=== PATIENT | male | born 1955 | race Caucasian/White ===

== ENCOUNTER 2019-08-25 14:23 | Inpatient (IN) | payer OTHER, MEDICAID ==
[~2019-08-25] VITALS: Ht 175.3 cm; Wt 88.0 kg
--- NOTE | 2019-08-25 14:26 | NUR ---
PT BIB CARE TO ER BED 4
[2019-08-25 14:33] VITALS: BP 123/59
--- NOTE | 2019-08-25 14:52 | NUR ---
64/M BIBA DUE TO HYPERGLYCEMIA >600 mg/dL AT THE CLINIC. PT HAS BEEN NON-CONPLANT OF HTN AND DM2 MEDS FOR 5 DAYS PER PARAMEDICS. PT IS A&OX4 BUT C/O DIZZY AND WEAKNESS. DENIES NAUSEA, VOMITING, SOB, CP, OR ANY PAIN. PT SPEAKING ON PHONE, NO SIGNS OF DISTRESS AT THIS TIME. PMH: HTN, DM2 MEDS: SEE LIST
[2019-08-25] MEDS ORDERED: NACL 0.9% 2,000 ML IV ONE (15:00)
--- NOTE | 2019-08-25 15:32 | NUR ---
PHLEB AT BEDSIDE
[2019-08-25 15:44] LABS: BASOPHILS # (AUTO) 0.1 K/uL (0.00-0.22); BASOPHILS % (AUTO) 0.6 % (0.0-2.0); EOSINOPHILS # (AUTO) 0.1 K/uL (0-0.4); EOSINOPHILS % (AUTO) 0.4 % (0.0-4.0); HEMOGLOBIN 10.8 g/dL (12.0-18.0); LYMPHOCYTES # (AUTO) 1.6 K/uL (2.0-11.5); LYMPHOCYTES % (AUTO) 13.5 % (20.5-51.1); MEAN CORPUSCULAR HEMOGLOBIN 25 pg (27-31); MEAN CORPUSCULAR HGB CONC 31 g/dL (33-37); MONOCYTES # (AUTO) 1.3 K/uL (0.8-1.0); MONOCYTES % (AUTO) 10.4 % (1.7-9.3); NEUTROPHILS # (AUTO) 9.1 K/uL (1.8-7.7); NEUTROPHILS % (AUTO) 75.1 % (42.2-75.2); PLATELET COUNT (AUTO) 342 K/uL (140-450); RED BLOOD CELL COUNT(AUTO) 4.37 MIL/uL (4.20-6.10); WHITE BLOOD COUNT (AUTO) 12.1 K/uL (4.8-10.8)
[2019-08-25 16:15] LABS: ANION GAP 9.8 (8-16); CREATININE 1.5 mg/dL (0.7-1.3); POTASSIUM 4.8 mmol/L (3.5-5.1)
--- NOTE | 2019-08-25 16:23 | NUR ---
PT STATES WANTING TO EAT. DR. BANG NOTIFIED. ORDERED DIABETIC DIET FOR PT.
[2019-08-25 16:26] LABS: ALBUMIN 2.3 g/dL (3.4-5.0); TOTAL BILIRUBIN 0.4 mg/dL (0.0-1.0)
[2019-08-25] MEDS ORDERED: INSULIN REGULAR, HUMAN 100 UNIT/ML VIAL SUBQ ONE (17:05)
--- NOTE | 2019-08-25 17:19 | NUR ---
PT IS RESTING IN THE BED WITH EYES OPENED. PT IS ON THE MONITOR AND WILL CONTINUE TO MONITORING PT'S VITAL SIGNS. VSS.
--- NOTE | 2019-08-25 18:20 | NUR ---
PT URINATED AT BEDSIDE W/ URINAL. PT IS ON THE MONITOR WITH VITAL SIGNS STABLE.
--- NOTE | 2019-08-25 18:42 | NUR ---
CONFIRMED WITH ADMITTING PT WILL BE ADMITTED TO [facility].
[2019-08-25] MEDS ORDERED: ONDANSETRON 4 MG/2 ML VIAL IVP PRN (18:55)
[2019-08-25] MEDS ORDERED: HYDROcodone/APAP 7.5/325 MG 1 TAB PO PRN (18:55)
[2019-08-25] MEDS ORDERED: ACETAMINOPHEN 325 MG TAB PO PRN (18:55)
--- NOTE | 2019-08-25 19:15 | NUR ---
RECEIVED REPORT FROM VERA VENTURA.
--- NOTE | 2019-08-25 19:15 | NUR ---
Pt report given to VERA Mclaughlin. Transfer of care at this time.
[2019-08-25] MEDS ORDERED: LOTC TP (19:33)
[2019-08-25] MEDS ORDERED: [UNRECOGNIZED DRUG - CODE] PO (19:33)
[2019-08-25] MEDS ORDERED: INSU100S22 SC (19:33)
[2019-08-25] MEDS ORDERED: LISI10TA11 PO (19:33)
[2019-08-25] MEDS ORDERED: METF1000 PO (19:33)
[2019-08-25] MEDS ORDERED: OMEP20TC12 PO (19:33)
[2019-08-25] MEDS ORDERED: SPIMDI INH (19:33)
[2019-08-25] MEDS ORDERED: FLUT1POW3 IH (19:33)
[2019-08-25] MEDS ORDERED: SILD50TA PO (19:33)
[2019-08-25] MEDS ORDERED: HUM7525 SUBQ (19:33)
--- NOTE | 2019-08-25 19:50 | NUR ---
\Admited to TELE. Will go to room 122 B. Belongings list completed. Report to VERA ESQUEDA .
[2019-08-25 19:55] LABS: PROTHROMBIN TIME 9.9 secs (10.8-13.4)
[2019-08-25 20:00] VITALS: BP 156/72
--- NOTE | 2019-08-25 20:00 | NUR ---
PT ARRIVED VIA GURNEY FROM ER, REPORT GIVEN BY WILLIE RN DAYSHIFT NURSE AT BEDSIDE FOR CONTINUITY OF CARE, PT AMBULATE INDEPENDENTLY TO B BED OF ROOM 122. PT DECLINES A GOWN AT THIS TIME. HE IS AOX4, HUNGARIAN SPEAKING WITH SKIN INTACT. V/S FOLLOWS: T 100.2 P 79 R 18 B/P 156/72 02 91% ON ROOM AIR. PT ORIENTED TO ROOM, BED AND REMOTE. ALL REQUESTED NEEDS ATTENDED AND CALL WILKERSON IN REACH.
[2019-08-25 20:01] LABS: BARBITURATE, URINE NEG. ng/ml (NEG <=200); BENZODIAZEPINE, URINE NEG. ng/mL (NEG <=200); CANNABINOID, URINE NEG. ng/mL (NEG <=50); COCAINE, URINE NEG. ng/mL (NEG <=300); OPIATE, URINE NEG. ng/mL (NEG <=2000); PHENCYCLIDINE SCREEN,URINE NEG. ng/mL (NEG <=25)
[2019-08-25 20:04] LABS: APPEARANCE,URINE CLEAR (CLEAR); BILIRUBIN,URINE NEGATIVE (NEGATIVE); BLOOD, URINE TRACE-L (NEGATIVE); COLOR,URINE YELLOW (YELLOW); LEUKOCYTE ESTERASE ,URINE NEGATIVE (NEGATIVE); NITRITE, URINE NEGATIVE (NEGATIVE); UGLUCOSE 3+ (NEGATIVE)
[2019-08-25] MEDS ORDERED: DEXTROSE 50% 50 ML SYR IVP PRN (20:10)
[2019-08-25] MEDS: BLOOD GLUCOSE MONITORING 1 DEV DEV FS SCH (20:37)
[2019-08-25] MEDS: INSULIN LISPRO SLIDING SCALE 100 UNITS/ML VIAL SUBQ PRN (20:45)
--- NOTE | 2019-08-25 20:45 | NUR ---
PT V/S FOLLOWS: T 100.2 P 79 R18 B/P 156/72 02 91% ON ROOM AIR. PT FINGERSTICK IS 355, HE WAS GIVEN 10 UNITS OF HUMALOG WELL A SMALL SNACK
[2019-08-25] MEDS: DOCUSATE SODIUM 100 MG GELCAP PO SCH (20:51)
[2019-08-25 20:56] LABS: MAGNESIUM 2.3 mg/dL (1.8-2.4); PHOSPHORUS 3.4 mg/dL (2.5-4.9); THYROID STIMULATING HORMONE 0.95 uIU/mL (0.34-3.74)
--- NOTE | 2019-08-25 21:20 | NUR ---
MRSA SWAB DONE, ADMISSION QUESTIONS ASKED VIA [employer] INSPECTOR REPAIRER PHONES WITH CRISTINA SLACKMAN # [id number]. PT GIVEN OPPORTUNITY TO ASKED QUESTIONS, PT VERBALIZED UNDERSTANDING OF MEDICATIONS AND DM TEACHING AT BEDSIDE. PT GIVEN ORDERED MEDS AND PT HAS NS RUNNING ORDERED. PT GIVEN TYLENOL FOR MILD GENERALIZED DISCOMFORT FROM INCREASED TEMP. WILL CONTINUE TO MONITOR V/S.
[2019-08-25] MEDS: NACL 0.9% 1,000 ML IV SCH (21:47)
[2019-08-26] VITALS: BP 107/74
--- NOTE | 2019-08-26 | NUR ---
TEMP RETAKEN IS 98.1 PT SLEEPING NO S/S OF PAIN OR DISTRESS NOTED.
[2019-08-26 04:00] VITALS: BP 125/54
--- NOTE | 2019-08-26 04:00 | NUR ---
PT SLEEPING IN STABLE CONDITION.
[2019-08-26] MEDS: NACL 0.9% 1,000 ML IV SCH ×3 (05:38→18:54)
--- NOTE | 2019-08-26 06:00 | NUR ---
PT AM FINGERSTICK IS 307 GIVEN 8 UNITS OF HUMALOG PER PROTOCOL, IV FLUID BAG REPLACE.
[2019-08-26] MEDS: INSULIN LISPRO SLIDING SCALE 100 UNITS/ML VIAL SUBQ PRN ×3 (06:35→20:27)
[2019-08-26] MEDS: PANTOPRAZOLE 40 MG TABEC PO SCH (06:39)
[2019-08-26] MEDS: BLOOD GLUCOSE MONITORING 1 DEV DEV FS SCH ×4 (06:39→20:25)
--- NOTE | 2019-08-26 07:23 | NUR ---
RECEIVED REPORT FROM TAPE COATER NURSE. PATIENT LYING DOWN IN BED SLEEPING, AROUSABLE BY VOICE. NO DISTRESS NOTED. DENIES ANY PAIN. AAOX4, CALM, COOPERATIVE, SKIN COLOR APPROPRIATE TO ETHNICITY, WARM TO TOUCH. SKIN INTACT. IV SITE INTACT, PATENT, AND INFUSING IVF PER MD ORDERS. RESPIRATIONS EVEN, UNLABORED, ON ROOM AIR. REVIEWED PLAN OF CARE WITH PATIENT. PATIENT VERBALIZED UNDERSTANDING. SAFETY MEASURES IN PLACE, CALL LIGHT WITHIN REACH. WILL CONTINUE TO MONITOR.
[2019-08-26 07:57] LABS: ANION GAP 11.9 (8-16); CARBON DIOXIDE 26.4 mmol/L (21-32); CREATININE 1.1 mg/dL (0.7-1.3); POTASSIUM 4.3 mmol/L (3.5-5.1)
[2019-08-26 08:00] VITALS: BP 140/69
[2019-08-26 08:02] LABS: MAGNESIUM 1.9 mg/dL (1.8-2.4); PHOSPHORUS 2.8 mg/dL (2.5-4.9)
[2019-08-26 08:06] LABS: BASOPHILS # (AUTO) 0.1 K/uL (0.00-0.22); BASOPHILS % (AUTO) 0.5 % (0.0-2.0); EOSINOPHILS # (AUTO) 0.1 K/uL (0-0.4); EOSINOPHILS % (AUTO) 0.8 % (0.0-4.0); HEMATOCRIT 36.8 % (36-52); HEMOGLOBIN 11.6 g/dL (12.0-18.0); LYMPHOCYTES # (AUTO) 1.8 K/uL (2.0-11.5); LYMPHOCYTES % (AUTO) 14.2 % (20.5-51.1); MEAN CORPUSCULAR HEMOGLOBIN 25 pg (27-31); MEAN CORPUSCULAR HGB CONC 32 g/dL (33-37); MEAN CORPUSCULAR VOLUME 79.5 fL (80-94); MONOCYTES # (AUTO) 1.1 K/uL (0.8-1.0); NEUTROPHILS # (AUTO) 9.4 K/uL (1.8-7.7); NEUTROPHILS % (AUTO) 75.5 % (42.2-75.2); PLATELET COUNT (AUTO) 364 K/uL (140-450); RED BLOOD CELL COUNT(AUTO) 4.63 MIL/uL (4.20-6.10); RED CELL DISTRIBUTION WIDTH 14.9 % (11.6-13.7); WHITE BLOOD COUNT (AUTO) 12.5 K/uL (4.8-10.8)
[2019-08-26] MEDS ORDERED: ALBUTEROL SULFATE/IPRATROPIU 3 ML SOL IH PRN (08:50)
[2019-08-26] MEDS: FAMOTIDINE 20 MG TAB PO SCH (09:00)
[2019-08-26] MEDS: DOCUSATE SODIUM 100 MG GELCAP PO SCH ×2 (09:00→20:59)
[2019-08-26] MEDS: LISINOPRIL 10 MG TAB PO SCH (09:01)
[2019-08-26] MEDS: metFORMIN 500 MG TAB PO SCH ×2 (09:01→21:00)
[2019-08-26] MEDS: INSULIN LANTUS 100 UNITS/ML 10 ML VIAL SUBQ SCH (09:08)
--- NOTE | 2019-08-26 09:14 | NUR ---
PATIENT IS SCREENED AND CATEGORIZED HIGH NUTRITION RISK. PATIENT WILL BE SEEN WITHIN 1-2 DAY OF ADMISSION. 08/26/2019-08/27/[address]
[2019-08-26 12:00] VITALS: BP 120/59
[2019-08-26 12:33] LABS: CHOL/HDL RATIO 4.2 (1-4.5)
--- NOTE | 2019-08-26 12:48 | NUR ---
PATIENT SITTING DOWN IN BED WITH LUNCH TRAY IN FRONT. NO DISTRESS NOTED. CONDITION UNCHANGED. 12 UNITS HUMALOG VIA SUBQ GIVEN AT THIS TIME PER DR. QURESHI ORDERS FOR 409 GLUCOSE.
[2019-08-26 16:00] VITALS: BP 123/59
[2019-08-26] MEDS: INSULIN REGULAR, HUMAN 100 UNIT/ML VIAL SUBQ SCH (16:33)
--- NOTE | 2019-08-26 16:37 | NUR ---
PATIENT LYING DOWN IN BED SLEEPING, AROUSABLE BY VOICE. CONDITION UNCHANGED. SCHEDULED MEDICATIONS DUE GIVEN. WILL CONTINUE TO MONITOR.
--- NOTE | 2019-08-26 19:25 | NUR ---
GAVE REPORT TO BUSINESS TEST ANALYST NURSE FOR CONTINUITY OF CARE. PATIENT IN STABLE CONDITION.
--- NOTE | 2019-08-26 19:27 | NUR ---
RECEIVED REPORT FROM AM SHIFT NURSE, GERARD. AAOX4, AMBULATORY, PATIENT IN BED SLEEPING,EASILY AROUSED BY VERBAL STIMULI. EVEN, UNLABORED, ON ROOM AIR. NO DISTRESS NOTED. DENIES ANY PAIN. WITH IV ON THE L AC G 20, NS AT 125M/HR INTACT, PATENT. BED PLACED IN LOW POSITION. CALL LIGHT WITHIN REACH. WILL CONTINUE TO MONITOR.
[2019-08-26 19:55] VITALS: BP 108/54
--- NOTE | 2019-08-26 20:27 | NUR ---
PT GILDARDO BLOOD SUGAR 217= 4 UNITS HUMALOG GIVEN
--- NOTE | 2019-08-26 20:34 | NUR ---
RECEIVED PT ON ROOM AIR WITH AN SP02 OF 94% AND CLEAR BREATH SOUNDS. NO RESPIRATORY DISTRESS NOTED AT THIS TIME; HR 79 AND RR 16. HHN PRN TX NOT GIVEN. WILL CONTINUE TO MONITOR PT.
--- NOTE | 2019-08-26 22:40 | NUR ---
PT WENT TO THE BATHROOM, STEADY GAIT, NO COMPLAINTS AT THIS TIME. WILL CONTINUE TO MONITOR
[2019-08-27] VITALS: BP 112/74
[2019-08-27] MEDS: NACL 0.9% 1,000 ML IV SCH ×2 (00:28→16:43)
--- NOTE | 2019-08-27 00:41 | NUR ---
PT SLEEPING, NO COMPLAINTS AT THIS TIME. WILL CONTINUE TO MONITOR
[2019-08-27 04:00] VITALS: BP 128/52
[2019-08-27] MEDS: BLOOD GLUCOSE MONITORING 1 DEV DEV FS SCH ×4 (05:03→21:00)
[2019-08-27] MEDS: INSULIN REGULAR, HUMAN 100 UNIT/ML VIAL SUBQ SCH ×3 (05:40→16:39)
--- NOTE | 2019-08-27 05:42 | NUR ---
DID NOT GIVE THE HUMALOG SLIDING SILVINO, BECAUSE I HAVE GIVEN THE HUMULIN R, HOLD THE HUMALOG SLIDING SCALE IT PER
[2019-08-27 05:48] LABS: BASOPHILS # (AUTO) 0.1 K/uL (0.00-0.22); BASOPHILS % (AUTO) 0.6 % (0.0-2.0); EOSINOPHILS # (AUTO) 0.1 K/uL (0-0.4); HEMATOCRIT 32.4 % (36-52); HEMOGLOBIN 10.2 g/dL (12.0-18.0); LYMPHOCYTES % (AUTO) 14.8 % (20.5-51.1); MEAN CORPUSCULAR HEMOGLOBIN 25 pg (27-31); MEAN CORPUSCULAR HGB CONC 32 g/dL (33-37); MEAN CORPUSCULAR VOLUME 79.1 fL (80-94); MONOCYTES # (AUTO) 1.3 K/uL (0.8-1.0); MONOCYTES % (AUTO) 9.9 % (1.7-9.3); NEUTROPHILS % (AUTO) 73.7 % (42.2-75.2); PLATELET COUNT (AUTO) 334 K/uL (140-450); RED CELL DISTRIBUTION WIDTH 14.9 % (11.6-13.7); WHITE BLOOD COUNT (AUTO) 13.6 K/uL (4.8-10.8)
[2019-08-27 06:05] LABS: ANION GAP 8.2 (8-16); CARBON DIOXIDE 26.4 mmol/L (21-32); POTASSIUM 3.6 mmol/L (3.5-5.1)
[2019-08-27] MEDS: PANTOPRAZOLE 40 MG TABEC PO SCH (06:12)
--- NOTE | 2019-08-27 06:49 | NUR ---
PT AWAKE ALERT ORIENTED X 4, AMBULATORY PT IN STABLE CONDITION AT THIS TIME. WILL ENDORSE TO NEXT SHIFT
--- NOTE | 2019-08-27 07:23 | NUR ---
RECEIVED REPORT FROM SPLICING TECHNICIAN NURSE. PATIENT LYING DOWN IN BED SLEEPING, AROUSABLE BY VOICE. NO DISTRESS NOTED. DENIES ANY PAIN. AAOX4, CALM, COOPERATIVE, SKIN COLOR APPROPRIATE TO ETHNICITY, WARM TO TOUCH. SKIN INTACT. IV SITE INTACT, PATENT, AND INFUSING IVF PER MD ORDERS. RESPIRATIONS EVEN, UNLABORED, ON ROOM AIR. REVIEWED PLAN OF CARE WITH PATIENT. PATIENT VERBALIZED UNDERSTANDING. SAFETY MEASURES IN PLACE, CALL LIGHT WITHIN REACH. WILL CONTINUE TO MONITOR.
[2019-08-27 08:00] VITALS: BP 144/73
[2019-08-27] MEDS: LISINOPRIL 10 MG TAB PO SCH (09:08)
[2019-08-27] MEDS: DOCUSATE SODIUM 100 MG GELCAP PO SCH ×2 (09:08→22:09)
[2019-08-27] MEDS: metFORMIN 500 MG TAB PO SCH (09:08)
[2019-08-27] MEDS: FAMOTIDINE 20 MG TAB PO SCH (09:09)
[2019-08-27] MEDS: INSULIN LANTUS 100 UNITS/ML 10 ML VIAL SUBQ SCH (09:13)
--- NOTE | 2019-08-27 09:15 | NUR ---
PATIENT LYING DOWN IN BED, SLEEPING, AROUSABLE BY VOICE. NO DISTRESS NOTED. DENIES ANY PAIN. SCHEDULED MEDICATIONS DUE GIVEN. WILL CONTINUE TO MONITOR.
--- NOTE | 2019-08-27 10:09 | NUR ---
(08/27/19) RD INITIAL ASSESSMENT COMPLETED PLEASE REFER TO NUTRITION ASSESSMENT UNDER CARE ACTIVITY FOR ESTIMATED NUTRITIONAL NEEDS. RD RECOMMENDATIONS: 1. CONTINUE ON CCHO 60 GM DIET TOLERATED. 2. CONSULT RDN PRN. 3. RD WILL F/U 3-5 DAYS; MODERATE RISK. 4. RDN PROVIDED DM DIET EDUCATION TO PATIENT (HANDOUT); PT DECLINED FURTHER VERBAL DISCUSSION. PT MAY NEED DIET EDUCATION REINFORCEMENT. LAW BACA, , RDN
--- NOTE | 2019-08-27 12:41 | NUR ---
PATIENT SITTING DOWN IN BED. NO DISTRESS NOTED. SCHEDULED MEDICATIONS DUE GIVEN. WILL CONTINUE TO MONITOR.
[2019-08-27] MEDS: PIPERACILLIN/TAZOBACTAM 3.375 GM in DEXTROSE 5% 50 ML IV SCH ×2 (13:02→17:56)
--- NOTE | 2019-08-27 13:04 | NUR ---
PATIENT SITTING DOWN IN BED. NO DISTRESS NOTED. SCHEDULED MEDICATIONS DUE GIVEN. WILL CONTINUE TO MONITOR.
[2019-08-27] MEDS ORDERED: MAGNESIUM OXIDE 400 MG TAB PO SCH (15:18)
[2019-08-27 16:00] VITALS: BP 145/80
--- NOTE | 2019-08-27 16:23 | NUR ---
DISCHARGE PLANNIN64 Y/O MALE PATIENT FROM HOME, WHO CAME IN DUE TO HIGH BLOOD SUGAR. PAST MEDICAL HISTORY INCLUDE DM II, NEUROPATHY, COPD. INITIAL DIAGNOSIS OFD/O OF ANS. CURRENT LABS INCLUDE WBC 13.6, H/H 10.2/32.4, NA/K 134/3.6. CXR ON ADMISSION SHOWED PROMINENT 6.9 CM DENSITY WITHIN THE MEDIAL RIGHT UPPER LUNG WHICH MAY REPRESENT PULMONARY MASS, MEDIASTINAL MASS AND OR CONSOLIDATION. ON ZOSYN. [facility] CONSULT IN PLACE. DC PLAN TO HOME ONCE STABLE. Addendum: 08/28/19 at 1435 by Fariba York CM DC PLANNING SEEN BY PULMO DR HAWKINS REVIEWED CT OF THE CHEST RESULT SHOWING THE RT SIDE LUNG MASS CONCERNING FOR MALIGNANCY, RECOMMENDED OUT PT PET CT SCAN AND OTHER MALIGNANCY .CONTINUE PRN BRONCHODILATORS. ORDERED CT GUIDED BIOPSY. DC PLAN TO GO HOME WHEN STABLE CM TO FOLLOW.
--- NOTE | 2019-08-27 19:18 | NUR ---
RECEIVED BEDSIDE REPORT FROM AM SHIFT NURSE. PATIENT IS RIGHT SIDE LYING ON BED, WITH EYES CLOSED. NO SOB OR DISTRESS NOTED.IV ACCESS ON LEFT FOREARM 20 GAUGE, PATENT, INTACT AND INFUSING WELL. PATIENT IS AMBULATORY. SKIN IS INTACT. BED IN LOW, SAFETY MEASURES IN PLACE.CALL LIGHT WITHIN PATIENT REACH. WILL CONTINUE TO MONITOR PATIENT.
--- NOTE | 2019-08-27 19:19 | NUR ---
GAVE REPORT TO STUDENT SERVICES VICE PRESIDENT NURSE FOR CONTINUITY OF CARE. PATIENT IN STABLE CONDITION.
[2019-08-27] MEDS: ALBUTEROL SULFATE/IPRATROPIU 3 ML SOL IH SCH (21:00)
--- NOTE | 2019-08-27 21:10 | NUR ---
ROUNDS DONE. VISIBLE CHEST RISE AND FALL NOTED. CALL LIGHT WITHIN PATIENT REACH. WILL CONTINUE TO MONITOR PATIENT.
--- NOTE | 2019-08-27 22:00 | NUR ---
BLOOD GLUCOSE RESULT OF 146. NO INSULIN COVERAGE NEEDED.
[2019-08-28] MEDS: PIPERACILLIN/TAZOBACTAM 3.375 GM in DEXTROSE 5% 50 ML IV SCH ×4 (00:05→17:07)
[2019-08-28] MEDS: NACL 0.9% 1,000 ML IV SCH (00:06)
[2019-08-28 00:10] VITALS: BP 146/60
--- NOTE | 2019-08-28 00:15 | NUR ---
VITALS DONE. NO DISTRESS NOTED. CALL LIGHT WITHIN PATIENT REACH. WILL CONTINUE TO MONITOR PATIENT.
--- NOTE | 2019-08-28 04:01 | NUR ---
ROUNDS DONE. VISIBLE CHEST RISE AND FALL NOTED. CALL LIGHT WITHIN PATIENT REACH. WILL CONTINUE TO MONITOR PATIENT.
[2019-08-28] MEDS: PANTOPRAZOLE 40 MG TABEC PO SCH (05:35)
[2019-08-28 06:01] LABS: BASOPHILS # (AUTO) 0.1 K/uL (0.00-0.22); BASOPHILS % (AUTO) 0.5 % (0.0-2.0); EOSINOPHILS # (AUTO) 0.1 K/uL (0-0.4); EOSINOPHILS % (AUTO) 0.8 % (0.0-4.0); HEMATOCRIT 34.1 % (36-52); HEMOGLOBIN 10.7 g/dL (12.0-18.0); LYMPHOCYTES # (AUTO) 1.9 K/uL (2.0-11.5); LYMPHOCYTES % (AUTO) 14.7 % (20.5-51.1); MEAN CORPUSCULAR HEMOGLOBIN 25 pg (27-31); MEAN CORPUSCULAR HGB CONC 31 g/dL (33-37); MEAN CORPUSCULAR VOLUME 78.3 fL (80-94); MONOCYTES # (AUTO) 1.3 K/uL (0.8-1.0); MONOCYTES % (AUTO) 10.7 % (1.7-9.3); NEUTROPHILS # (AUTO) 9.3 K/uL (1.8-7.7); NEUTROPHILS % (AUTO) 73.3 % (42.2-75.2); PLATELET COUNT (AUTO) 332 K/uL (140-450); RED BLOOD CELL COUNT(AUTO) 4.35 MIL/uL (4.20-6.10); RED CELL DISTRIBUTION WIDTH 15.1 % (11.6-13.7); WHITE BLOOD COUNT (AUTO) 12.7 K/uL (4.8-10.8)
--- NOTE | 2019-08-28 06:36 | NUR ---
PATIENT IN STABLE CONDITION. CALL LIGHT WITHIN PATIENT REACH. WILL ENDORSE TO AM SHIFT NURSE FOR CONTINUITY OF CARE.
[2019-08-28 06:39] LABS: ANION GAP 7.1 (8-16); CARBON DIOXIDE 29.5 mmol/L (21-32); CREATININE 1.2 mg/dL (0.7-1.3); POTASSIUM 3.6 mmol/L (3.5-5.1)
[2019-08-28] MEDS: BLOOD GLUCOSE MONITORING 1 DEV DEV FS SCH ×4 (06:54→21:27)
[2019-08-28] MEDS: INSULIN REGULAR, HUMAN 100 UNIT/ML VIAL SUBQ SCH ×3 (06:55→17:01)
[2019-08-28] MEDS: INSULIN LISPRO SLIDING SCALE 100 UNITS/ML VIAL SUBQ PRN ×4 (06:56→21:35)
--- NOTE | 2019-08-28 06:57 | NUR ---
PATIENT HAD A BLOOD GLUCOSE OF 196 WITH 2 UNITS OF REGULAR INSULIN COVERAGE GIVEN.
--- NOTE | 2019-08-28 07:20 | NUR ---
RECEIVED BEDSIDE REPORT FROM DISTRICT CUSTOMS DIRECTOR NURSE. PT IS ASLEEP, NO S/S OF DISTRESS OR SOB. PT ON ROOM AIR, SKIN INTACT. IV SITE L FA 20 G, INFUSING NS 50 ML/HR. FALL PRECAUTIONS IN PLACE. CALL LIGHT IS WITHIN REACH. WILL CONTINUE TO MONITOR.
[2019-08-28 08:00] VITALS: BP 146/72
[2019-08-28] MEDS: INSULIN LANTUS 100 UNITS/ML 10 ML VIAL SUBQ SCH (09:20)
[2019-08-28] MEDS: LACTOBACILLUS RHAMNOSUS GG 1 EACH CAP PO SCH (09:23)
[2019-08-28] MEDS: FAMOTIDINE 20 MG TAB PO SCH (09:23)
[2019-08-28] MEDS: LISINOPRIL 10 MG TAB PO SCH (09:23)
[2019-08-28] MEDS: DOCUSATE SODIUM 100 MG GELCAP PO SCH ×2 (09:23→21:33)
[2019-08-28] MEDS: ALBUTEROL SULFATE/IPRATROPIU 3 ML SOL IH SCH ×2 (10:02→21:14)
--- NOTE | 2019-08-28 11:41 | NUR ---
BG 282 AT THIS TIME. SCHEDULED 7 UNITS OF HUMULIN R ADMINISTERED, WELL 6 UNITS OF SLIDING SCALE HUMALOG. PT IS AWAKE AND ALERT IN BED, TALKING ON THE PHONE.
--- NOTE | 2019-08-28 14:21 | NUR ---
*S.T. BEDSIDE SWALLOW EVAL COMPLETED* See report. Pt presents with adequate oropharyngeal swallow function w/o overt s/s aspiration across all textures. Pt is able to self-feed w/o difficulty. Recommend: 1) Continue regular texture diet, thin liquids okay. 2) P.O. meds okay whole, one at a time. No further tx indicated at this time as pt does not present w/ clinical dysphagia. [place] [facility] [place] [facility] [place] [id number]
--- NOTE | 2019-08-28 15:35 | NUR ---
PT SLEEPING COMFORTABLY, NO S/S OF DISTRESS NO SOB. NO C/O PAIN. CONTINUING TO MONITOR.
[2019-08-28 16:00] VITALS: BP 150/67
--- NOTE | 2019-08-28 18:18 | NUR ---
PT UP BRUSHING HIS TEETH AFTER EATING DINNER.
--- NOTE | 2019-08-28 18:50 | NUR ---
PT IV ACCIDENTALLY PULLED OUT. PT IS EATING DINNER AT THIS TIME AND WANTS TO HAVE IV INSERTED AFTER HE IS FINISHED EATING. WILL ENDORSE TO CITY SOLICITOR NURSE.
--- NOTE | 2019-08-28 19:15 | NUR ---
ENDORSED PT TO FILE KEEPER NURSE IN STABLE CONDITION.
--- NOTE | 2019-08-28 19:30 | NUR ---
RECEIVED PT FROM DION GAMEZ PT CONGOLESE SPEAKER AAOX4 AMBULATORY NOT RESP DISTRESS NOTED IV IS INSERTED ON LEDT HAND GAUGE # 22 INITIAL ASSESSMENT DONE
--- NOTE | 2019-08-28 21:27 | NUR ---
RECEIVED PATIENT ON ROOM AIR PULSE OX SAT 94%. SCHEDULED BREATHING TREATMENT ADMINISTERED. TOLERATED TX WELL WITHOUT ADVERSE SIDE EFFECTS. NO ACUTE RESPIRATORY DISTRESS NOTED AT THIS TIME. WILL CONTINUE TO MONITOR.
--- NOTE | 2019-08-28 22:20 | NUR ---
PT IS TRANSFER TO ROOM 106 B ON STABLE CONDITION,
[2019-08-29] VITALS: BP 147/65
[2019-08-29] MEDS: PIPERACILLIN/TAZOBACTAM 3.375 GM in DEXTROSE 5% 50 ML IV SCH ×4 (00:19→18:26)
[2019-08-29] MEDS: NACL 0.9% 1,000 ML IV SCH (01:30)
--- NOTE | 2019-08-29 02:00 | NUR ---
;PT SLEEPING WELL NOT DISTRESS NOTED IV ON LEFT HAND INFUSING WELL
--- NOTE | 2019-08-29 05:06 | NUR ---
SPONGE BATH GIVEN LINEN CHANGED REPOSITIONED , PT HAS BEEN VOIDING WELL
[2019-08-29] MEDS: BLOOD GLUCOSE MONITORING 1 DEV DEV FS SCH ×4 (05:48→21:46)
[2019-08-29] MEDS: PANTOPRAZOLE 40 MG TABEC PO SCH (05:58)
[2019-08-29] MEDS: ALBUTEROL SULFATE/IPRATROPIU 3 ML SOL IH SCH ×2 (06:40→19:45)
[2019-08-29] MEDS: INSULIN LISPRO SLIDING SCALE 100 UNITS/ML VIAL SUBQ PRN ×4 (06:45→21:47)
[2019-08-29] MEDS: INSULIN REGULAR, HUMAN 100 UNIT/ML VIAL SUBQ SCH ×3 (06:46→17:03)
--- NOTE | 2019-08-29 06:57 | NUR ---
PT WILL BE NPO POST BREAKFAST FOR CT ABD/PELVIS WITH AND WITHOUT CONTRAST, CONSENT ALREADY SIGNED
--- NOTE | 2019-08-29 07:05 | NUR ---
RECEIVED BEDSIDE REPORT FROM NIGHT NURSE. PATIENT IS AAOX4. NO S/S OF DISTRESS NOTED. PLANS OF CARE DISCUSSED. BED IN LOW POSITION. CALL LIGHT WITHIN REACH.
[2019-08-29 08:00] VITALS: BP 159/75
[2019-08-29 08:51] LABS: MAGNESIUM 1.7 mg/dL (1.8-2.4)
[2019-08-29] MEDS: LACTOBACILLUS RHAMNOSUS GG 1 EACH CAP PO SCH (08:57)
[2019-08-29] MEDS: FAMOTIDINE 20 MG TAB PO SCH (08:58)
[2019-08-29] MEDS: LISINOPRIL 10 MG TAB PO SCH (08:58)
[2019-08-29] MEDS: DOCUSATE SODIUM 100 MG GELCAP PO SCH ×2 (08:58→21:32)
[2019-08-29 09:00] LABS: ANION GAP 11.4 (8-16); CARBON DIOXIDE 27.4 mmol/L (21-32); CREATININE 1.3 mg/dL (0.7-1.3); POTASSIUM 3.8 mmol/L (3.5-5.1)
--- NOTE | 2019-08-29 09:00 | NUR ---
PATIENT AAOX4. PT NPO FOR CT SCAN WITH OR WITHOUT CONTRAST SCHEDULED. NO S/S OF DISTRESS NOTED.
[2019-08-29 09:01] LABS: BASOPHILS # (AUTO) 0.1 K/uL (0.00-0.22); BASOPHILS % (AUTO) 0.5 % (0.0-2.0); EOSINOPHILS # (AUTO) 0.1 K/uL (0-0.4); EOSINOPHILS % (AUTO) 0.6 % (0.0-4.0); HEMOGLOBIN 10.6 g/dL (12.0-18.0); LYMPHOCYTES # (AUTO) 2.3 K/uL (2.0-11.5); LYMPHOCYTES % (AUTO) 17.4 % (20.5-51.1); MEAN CORPUSCULAR HEMOGLOBIN 25 pg (27-31); MEAN CORPUSCULAR HGB CONC 31 g/dL (33-37); MEAN CORPUSCULAR VOLUME 79.2 fL (80-94); MONOCYTES % (AUTO) 7.7 % (1.7-9.3); NEUTROPHILS # (AUTO) 9.9 K/uL (1.8-7.7); NEUTROPHILS % (AUTO) 73.8 % (42.2-75.2); PLATELET COUNT (AUTO) 340 K/uL (140-450); RED CELL DISTRIBUTION WIDTH 14.9 % (11.6-13.7); WHITE BLOOD COUNT (AUTO) 13.4 K/uL (4.8-10.8)
[2019-08-29] MEDS: INSULIN LANTUS 100 UNITS/ML 10 ML VIAL SUBQ SCH (09:01)
--- NOTE | 2019-08-29 10:30 | NUR ---
PT IS OFF UNIT FOR CT SCAN.
--- NOTE | 2019-08-29 11:00 | NUR ---
PATIENT IS IN BED, AWAKE AND ALERT. IV INTACT AND PATENT TO LEFT WRIST. PATIENT AMBULATES TO THE BATHROOM WITH STEADY GAIT. CALL LIGHT WITHIN REACH. Addendum: 08/29/19 at 1139 by Madonna Lance RN PT RETURNED FROM CT SCAN.
--- NOTE | 2019-08-29 13:05 | NUR ---
PT AWAKE, ALERT, ORIENTED X4. PATIENT IS STILL EATING LUNCH. NO S/S OF DISTRESS NOTED. CALL LIGHT WITHIN REACH.
[2019-08-29 16:00] VITALS: BP 132/76
--- NOTE | 2019-08-29 16:00 | NUR ---
MADE ROUNDS, PATIENT AAOX4. NO S/S OF DISTRESS NOTED. PATIENT IN BED WATCHING TV, RESTING QUIETLY. CALL LIGHT WITHIN REACH.
--- NOTE | 2019-08-29 16:36 | NUR ---
REAL ESTATE SITE ANALYST assessment/discharge plan Name: Lin Abdullahi Relationship: sister Pre-Admission Living Arrangements: Lives with Other Other: Lin Horan Healthcare Decision Maker: Patient Advance Directive No Tentative Discharge Plan Summary: Patient is a 64 year old male with past medical history of diabetes and peripheral neuropathy. I met with patient at bedside. Patient alert and oriented x4. Patient speaks Mohawk. Patient lives at home with his sister Lin Horan and would like to return home upon discharge. Patient goes to [facility] (between [place], [place]) for medical care. He stated he has been waiting to receive his Medicare card via mail and has not, and this has made it difficult for him to obtain his medications from pharmacy. He stated he is planning to file a grievance against Social Security office. Bill Poster Installer and/or [employer] Consultant will follow up as needed. Signature: DEYA Ibarra Date: Aug 29, 2019
--- NOTE | 2019-08-29 18:58 | NUR ---
PATIENT IS STABLE. AAOX4. WILL ENDORSE TO NIGHT NURSE FOR CONTINUITY OF CARE.
--- NOTE | 2019-08-29 19:00 | NUR ---
RECEIVED PT FROM DAY SHIFT NURSE PT IS AAOX4 AMBULATORY IV ON LEFT HAND INFUSIGN WELL AND HL ON RT AC PATENTN NOT DISTRESS NOTED INITIAL ASSESSMENT DONE
--- NOTE | 2019-08-29 21:30 | NUR ---
BLOOD SUGAR TEST 249 COVERAGE WITH 4 UNITS SUB Q HUMALOG FOLLOW PROTOCOL AND HS SNACK IS GIVEN
--- NOTE | 2019-08-29 23:22 | NUR ---
PT SLEEPING WELL NOT DISTRESS ;NOTED REPOSITIONED HIMSELF IV ON LEFT HAND INFUSING WELL
[2019-08-29] MEDS ORDERED: MAGNESIUM OXIDE 400 MG TAB PO SCH (23:25)
[2019-08-30] VITALS: BP 148/67
[2019-08-30] MEDS: PIPERACILLIN/TAZOBACTAM 3.375 GM in DEXTROSE 5% 50 ML IV SCH ×3 (00:18→12:07)
--- NOTE | 2019-08-30 04:00 | NUR ---
PT HAS BEEN MONITORING CLOSE VOIDING WELL DENIES ANY PAIN OR DISCOMFORT IV ON RT AC INFUSIGN WELL NOT DISTRESS NOTED
[2019-08-30] MEDS: NACL 0.9% 1,000 ML IV SCH ×2 (04:43→06:24)
--- NOTE | 2019-08-30 05:14 | NUR ---
SPONGE BATH GIVEN LINEN CHANGED REPOSITIONED HIMSELF
[2019-08-30] MEDS: PANTOPRAZOLE 40 MG TABEC PO SCH (05:57)
[2019-08-30] MEDS: BLOOD GLUCOSE MONITORING 1 DEV DEV FS SCH ×2 (06:11→11:59)
[2019-08-30] MEDS: INSULIN LISPRO SLIDING SCALE 100 UNITS/ML VIAL SUBQ PRN ×2 (06:14→12:09)
[2019-08-30] MEDS: INSULIN REGULAR, HUMAN 100 UNIT/ML VIAL SUBQ SCH ×2 (06:15→12:08)
[2019-08-30] MEDS ORDERED: AMOX-999 PO (06:38)
[2019-08-30] MEDS ORDERED: AZIT250T3 PO (06:38)
[2019-08-30] MEDS ORDERED: ASCO1CAP75 PO (06:39)
[2019-08-30] MEDS: ALBUTEROL SULFATE/IPRATROPIU 3 ML SOL IH SCH (07:02)
[2019-08-30 07:12] LABS: BASOPHILS # (AUTO) 0.1 K/uL (0.00-0.22); BASOPHILS % (AUTO) 0.6 % (0.0-2.0); EOSINOPHILS # (AUTO) 0.1 K/uL (0-0.4); HEMATOCRIT 33.7 % (36-52); HEMOGLOBIN 10.6 g/dL (12.0-18.0); LYMPHOCYTES # (AUTO) 1.7 K/uL (2.0-11.5); MEAN CORPUSCULAR HEMOGLOBIN 25 pg (27-31); MEAN CORPUSCULAR HGB CONC 32 g/dL (33-37); MONOCYTES # (AUTO) 1.7 K/uL (0.8-1.0); MONOCYTES % (AUTO) 12.4 % (1.7-9.3); NEUTROPHILS # (AUTO) 9.8 K/uL (1.8-7.7); PLATELET COUNT (AUTO) 346 K/uL (140-450); RED BLOOD CELL COUNT(AUTO) 4.27 MIL/uL (4.20-6.10); RED CELL DISTRIBUTION WIDTH 15.5 % (11.6-13.7); WHITE BLOOD COUNT (AUTO) 13.4 K/uL (4.8-10.8)
[2019-08-30 07:14] LABS: ANION GAP 12.4 (8-16); CARBON DIOXIDE 28.8 mmol/L (21-32); CREATININE 1.2 mg/dL (0.7-1.3); POTASSIUM 4.2 mmol/L (3.5-5.1)
[2019-08-30 07:30] LABS: PHOSPHORUS 3.9 mg/dL (2.5-4.9)
--- NOTE | 2019-08-30 07:36 | NUR ---
PT IS ENDORSED TO DAY SHIFT NURSE FOR CONTINUE OF CARE
--- NOTE | 2019-08-30 07:37 | NUR ---
RECEIVED BEDSIDE REPORT FROM PM RN. PT AWAKE IN BED PT RECEIVING BREATHING TREATMENT. CALL LIGHT WITHIN REACH IVF INFUSING. ALL SAFETY MEASURES ARE IN PLACE WILL CONTINUE TO MONITOR.
[2019-08-30 08:28] VITALS: BP 111/57
[2019-08-30] MEDS: FAMOTIDINE 20 MG TAB PO SCH (08:48)
[2019-08-30] MEDS: LACTOBACILLUS RHAMNOSUS GG 1 EACH CAP PO SCH (08:48)
[2019-08-30] MEDS: LISINOPRIL 10 MG TAB PO SCH (08:49)
[2019-08-30] MEDS: DOCUSATE SODIUM 100 MG GELCAP PO SCH (08:49)
[2019-08-30] MEDS: INSULIN LANTUS 100 UNITS/ML 10 ML VIAL SUBQ SCH (08:54)
--- NOTE | 2019-08-30 09:00 | NUR ---
RECEIVED DISCHARGE ORDER. NOTIFIED PT. PT STATED HE WILL ARRANGE FOR FAMILY TO PICK HIM UP AROUND 1300.
--- NOTE | 2019-08-30 11:20 | NUR ---
FREQUENT ROUNDING ON PT PT APPEARS STABLE AND IN NO APPARENT DISTRESS. ALL SAFETY MEASURES ARE IN PLACE WILL CONTINUE TO MONITOR.
--- NOTE | 2019-08-30 13:45 | NUR ---
FREQUENT ROUNDING ON PT PT APPEARS STABLE AND IN NO APPARENT DISTRESS. ALL SAFETY MEASURES ARE IN PLACE AWAITING PT FAMILY TO COME PICK THE PATIENT UP
--- NOTE | 2019-08-30 15:18 | NUR ---
REVIEWED DISCHARGE INSTRUCTIONS WITH PATIENT. ANSWERED ALL QUESTIONS. INFORMED PT OF HIS FOLLOW UP APPOINTMENT AT [facility]. INFORMED PT TO [employer] DEVELOPER HIS MEDICATIONS ELECTRONICALLY SENT TO [facility]. REMOVED BOTH IVS IV TIPS INTACT. REMOVED ID BAND. PT AMBULATED OFF THE UNIT WITH ALL PERSONAL BELONGINGS. PT HAD FAMILY MEMBERS WAITING IN FRONT FOR HIM.
== END 2019-08-30 15:15 | disposition home or self-care (01) | DRG 177 ==
LOC: MED 14:23 → MTU 18:54
PROVIDERS: ADMIT General Practice; ATTEND General Practice
DX: J69.0 Pneumonitis due to inhalation of food and vomit (principal); E11.00 Type 2 diabetes mellitus with hyperosmolarity without nonketotic hyperglycemic-hyperosmolar coma (NKHHC); E43 Unspecified severe protein-calorie malnutrition; G93.41 Metabolic encephalopathy; E87.1 Hypo-osmolality and hyponatremia; E11.42 Type 2 diabetes mellitus with diabetic polyneuropathy; F17.210 Nicotine dependence, cigarettes, uncomplicated; I10 Essential (primary) hypertension; J43.9 Emphysema, unspecified; K21.9 Gastro-esophageal reflux disease without esophagitis; R91.8 Other nonspecific abnormal finding of lung field; G90.8 Other disorders of autonomic nervous system; Z68.28 Body mass index [BMI] 28.0-28.9, adult; Z79.899 Other long term (current) drug therapy
CPT/HCPCS: 36415; 71045; 71260; 80048; 80053; 80305; 81003; 82948; 83036; 83605; 83735; 83880; 84100; 84443; 84484; 85025; 85610; 85730; 87081; 92610; 93005; 94640; 96360; 96361; 96372; 97116; 97161-GP; 99285; J1644; J1815; J2543; J7030; J7060; J7620; Q0092; Q9967